=== PATIENT | female | born 1990 | race Caucasian/White ===

== ENCOUNTER 2020-11-24 13:59 | Day surgery (SDC) | payer OTHER ==
[2020-11-24 14:52] VITALS: BMI 26.5
[2020-11-24] MEDS ORDERED: hydrALAZINE 20 MG/ML VIAL SLOW IVP PRN (15:30)
== END 2020-11-24 17:00 | disposition home or self-care (01) ==
LOC: CSHLD/OP 13:59
PROVIDERS: ATTEND Obstetrics & Gynecology
DX: O47.1 False labor at or after 37 completed weeks of gestation (principal); Z3A.37 37 weeks gestation of pregnancy
CPT/HCPCS: 99283

== ENCOUNTER 2020-12-01 11:53 | Inpatient (IN) | payer OTHER ==
[2020-12-01] MEDS ORDERED: hydrALAZINE 20 MG/ML VIAL SLOW IVP PRN ×2 (14:50→22:40)
[2020-12-01] MEDS ORDERED: Ondansetron PF 4 MG/2 ML Vial IVP PRN (14:50)
[2020-12-01] MEDS ORDERED: HYDROcodone/Acetaminophen 5/325 mg Tablet PO PRN (14:50)
[2020-12-01] MEDS ORDERED: Butorphanol Tartrate 1 MG/ML VIAL SLOW IVP PRN (14:50)
[2020-12-01] MEDS ORDERED: Lidocaine 1% (PF) 30 ML VIAL SC PRN (14:50)
[2020-12-01] MEDS ORDERED: Ibuprofen 800 MG TAB PO PRN (14:50)
[2020-12-01 15:27] VITALS: BMI 26.5
[2020-12-01 15:30] LABS: Mean Corpuscular HGB CONC 34.1 g/dL (32.0-36.0); Mean Corpuscular Hemoglobin 31.5 pg (27.0-33.0); Mean Corpuscular Volume 92.1 fl (81.6-98.3); Mean Platelet Volume 10.9 fl (7.4-10.4); Platelet Count 261 10x3/uL (150-450); RBC Distribution Width 12.6 % (11.5-14.5); Red Blood Cell (RBC) Count 4.45 10x6/uL (3.90-5.03); White Blood Cell (WBC) Count 13.4 10x3/uL (3.5-10.5)
[2020-12-01 16:01] LABS: Hep B Surf Ag Non-Reactive S/CO (NonReactive); Syphilis Antibody Nonreactive (Nonreactive); Syphilis Antibody Index 0.02 S/CO (<1.00 Non-Reactive)
[2020-12-01] MEDS ORDERED: Ondansetron PF 4 MG/2 ML Vial ONE (16:04)
[2020-12-01 16:31] LABS: HBSAg Index 0.13 S/CO (0-0.99)
[2020-12-01] MEDS ORDERED: Fentanyl 4 mcg/Bup 0.1% Cadd 100 ML ONE (17:32)
[2020-12-01] MEDS: Lactated Ringer's 1,000 ML IV SCH (20:03)
[2020-12-01] MEDS ORDERED: Benzocaine-Menthol 82.5 ML CAN TOP PRN (22:40)
[2020-12-01] MEDS ORDERED: Bisacodyl 10 MG SUPP PR PRN (22:40)
[2020-12-01] MEDS ORDERED: traMADol HCl 50 MG TAB PO PRN ×2 (22:40)
[2020-12-01] MEDS ORDERED: Milk Of Magnesia 30 ML UDCUP PO PRN (22:40)
[2020-12-01] MEDS ORDERED: Lanolin Ointment 7 GM TUBE TOP PRN (22:40)
[2020-12-01] MEDS: NS w/ Oxytocin 30 units 500 ML IV PRN (22:45)
[2020-12-01] MEDS ORDERED: NS / Oxytocin 40 units/1000ml 1,000 ML IV SCH (22:45)
[2020-12-02] MEDS: NS w/ Oxytocin 30 units 500 ML IV PRN (00:31)
[2020-12-02] MEDS: Ibuprofen 800 MG TAB PO SCH ×3 (05:41→21:36)
[2020-12-02] MEDS: Ferrous Sulfate 325 MG TAB PO SCH ×2 (08:31→19:49)
[2020-12-02] MEDS ORDERED: Adacel (T-DAP) 0.5 ML SYRINGE IM ONE (09:00)
[2020-12-02] MEDS: Docusate Calcium (SURFAK) 240 MG CAP PO SCH ×2 (09:30→21:37)
[2020-12-02] MEDS: Prenatal Vitamin 1 TAB PO SCH (09:30)
[2020-12-02 13:27] LABS: SARS-CoV-2 NAA Rapid Test Not Detected (NotDetected)
[2020-12-03] MEDS: Ibuprofen 800 MG TAB PO SCH (05:39)
[2020-12-03] MEDS: Ferrous Sulfate 325 MG TAB PO SCH (07:36)
[2020-12-03 07:53] VITALS: BP 115/70; TEMP 97.9
[2020-12-03] MEDS: Prenatal Vitamin 1 TAB PO SCH (08:50)
[2020-12-03] MEDS: Docusate Calcium (SURFAK) 240 MG CAP PO SCH (08:51)
[2020-12-03] MEDS: Lactated Ringer's 1,000 ML IV SCH (09:33)
== END 2020-12-03 11:30 | disposition home or self-care (01) | DRG 807 ==
LOC: CSHLD/OP 11:53 → CSHLD 19:44 → CSHPP 12-02 02:00
PROVIDERS: ADMIT Obstetrics & Gynecology; ATTEND Obstetrics & Gynecology
PROC: 10E0XZZ Delivery of Products of Conception, External Approach (ICD-10-PCS; principal; 2020-12-01)
PROC: 0HQ9XZZ Repair Perineum Skin, External Approach (ICD-10-PCS; 2020-12-01)
DX: O70.0 First degree perineal laceration during delivery (principal); Z37.0 Single live birth; Z3A.38 38 weeks gestation of pregnancy; Z20.822 Contact with and (suspected) exposure to COVID-19
CPT/HCPCS: 36415; 51702; 85027; 86780; 86850; 86900; 86901; 87340; 87635; 99285; J2405; J2590; U0002; U0003; U0005